=== PATIENT | female | born 1950 | race Caucasian/White ===

== ENCOUNTER 2016-12-18 12:53 | Outpatient (RCR) | payer MEDICARE, BC ==
--- OUTSIDE RECORDS SUMMARY | 2016-11-03 12:43 | XMS REPORT | Referral Summary ---
Author Author [facility] Organization [facility] Address Unknown Phone Unavailable Care Team Providers Care Nursery Attendant Name Role Phone No PCP, Pt States PCP Encounter VC Date(s): 05/29/16 - 05/30/16 [facility] [address] [place] [address] Discharge Diagnosis: Breast cancer, left Discharge Disposition: 01-Home or Self Care Attending Physician: Ysabel Martínez MD Admitting Physician: Ysabel Martínez MD Vital Signs Most recent to 1 oldest [Reference Range]: Temperature Oral 36.8 degC [35.8-37.3 degC] (05/30/16 8:22 AM) Temperature Skin 36.1 degC [36-37 degC] (05/29/16 12:51 PM) Temperature Temporal 36.6 degC Artery [36.3-37.8 (05/30/16 12:01 PM) degC] Peripheral Pulse 67 bpm Rate [60-100 bpm] (05/30/16 12:01 PM) Heart Rate Monitored 88 bpm [60-100 bpm] (05/30/16 8:22 AM) Respiratory Rate 18 br/min [14-20 br/min] (05/30/16 12:01 PM) Blood Pressure 124/74 mmHg [90-140/60-90 mmHg] (05/30/16 12:01 PM) Mean Arterial 82 mmHg Pressure, Cuff (05/29/16 1:45 PM) SpO2 98 % (05/30/16 12:01 PM) Problem List Condition Effective Dates Status Health Status Informant Acute Active pain(Confirmed) Breast cancer, Active left(Confirmed) Allergies, Adverse Reactions, Alerts No Known Medication Allergies Medications cephalexin 500 mg oral capsule 500 mg 1 caps, Oral, QID, Written rx in chart, X 7 days, # 28 caps, 0 Refill(s) , other reason (Rx) Start Date: 05/29/16 Stop Date: 06/05/16 Status: OrderedColace 100 mg oral capsule 100 mg 1 caps, Oral, BID, 0 Refill(s) Start Date: 05/30/16 Status: OrderedPercocet 5/325 oral tablet 2 tabs, Oral, q4hr, Pain Moderate (4-6), 0 Refill(s) Start Date: 05/29/16 Status: OrderedZofran ODT 4 mg oral tablet, disintegrating 4 mg 1 tabs, SubLingual, q8hr, Nausea or Vomiting, 0 Refill(s) Start Date: 05/30/16 Status: Ordered Results Chemistry Most recent to 1 oldest [Reference Range]: Blood Glucose, 97 mg/dL Capillary [70-100 (05/29/16 6:14 AM) mg/dL] Immunizations No data available for this section Procedures Procedure Date Related Diagnosis Body Site Insertion Implantable Venous Access Port1 05/29/16 Lumpectomy Breast with [place] Node Biopsy2 05/29/16 Reconstruction Breast3 05/29/16 1auto-populated from documented surgical [id number] from documented surgical [id number] from documented surgical case Social History Social History Type Response Smoking Status Never smoker Assessment and Plan No data available for this section
== END 2017-02-01 | disposition home or self-care (01) ==
LOC: ONC 12:53
PROVIDERS: ATTEND Radiology Radiation Oncology
DX: Z51.0 Encounter for antineoplastic radiation therapy (principal); C50.512 Malignant neoplasm of lower-outer quadrant of left female breast; Z17.0 Estrogen receptor positive status [ER+]
CPT/HCPCS: 77290; 77295; 77332; 77334; 77336; 77417; 99214

== ENCOUNTER 2017-02-02 14:18 | Outpatient (RCR) | payer MEDICARE, BC | END 2017-05-03 | disposition home or self-care (01) | LOC: ONC 14:18 | PROVIDERS: ATTEND Radiology Radiation Oncology | DX: C50.512 Malignant neoplasm of lower-outer quadrant of left female breast (principal); Z17.0 Estrogen receptor positive status [ER+] | CPT/HCPCS: 99213 ==